=== PATIENT | female | born 1975 | race Caucasian/White ===

== ENCOUNTER 2016-07-05 17:44 | Emergency (ER) | payer BC ==
[~2016-07-05] VITALS: Ht 172.7 cm; Wt 67.6 kg
[~2016-07-05 17:44] MED LIST: DULO60CA6 PO; GABA600T2 PO; GBPN100C PO; HYDR-1231 PO; HYDR-3456 PO; METH-53 PO; METH4TAB PO; NAPR-243 PO; NAPR-689 PO; NORT50CA PO; PRD20T PO; TIZA4TAB3 PO; TRAM50TA2 PO
--- OUTSIDE RECORDS SUMMARY | 2016-07-05 17:53 | XMS REPORT | Continuity of Care Document ---
Author Author [facility] Organization [facility] Address Unknown Phone Unavailable Allergies Active Description Code Type Severity Reaction Onset Reported/Identified Relationship to Patient Clinical Status Yes meperidine [id number] Drug Allergy Mild HIVES 09/06/2013 Yes phenobarbital [id number] Drug Allergy Unknown N/A 09/06/2013 Medications Problems Date Dx Coded Attending Type Code Diagnosis Diagnosed By 09/06/2013 JARRETT SINGLETON, SHYAM Mchugh Ot 724.2 LUMBAGO 04/02/2014 PEREZ HERRON APRN Ot 724.2 LUMBAGO 02/16/2015 BRAIN SINGLETON, AIDE Rea Ot 724.2 LUMBAGO 03/29/2015 TERRI SEALS MD Ot Z01.818 03/31/2015 TERRI SEALS MD Ot G89.4 CHRONIC PAIN SYNDROME 03/31/2015 TERRI SEALS MD Ot M96.1 POSTLAMINECTOMY SYNDROME, NOT ELSEWHERE 09/08/2015 TERRI SEALS MD Ot Z01.818 ENCOUNTER FOR OTHER PREPROCEDURAL EXAMIN 09/08/2015 TERRI SEALS MD Ot G89.4 CHRONIC PAIN SYNDROME 09/08/2015 TERRI SEALS MD Ot M53.3 SACROCOCCYGEAL DISORDERS, NOT ELSEWHERE 09/08/2015 TERRI SEALS MD Ot M96.1 POSTLAMINECTOMY SYNDROME, NOT ELSEWHERE 09/08/2015 TERRI SEALS MD Ot Z79.899 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 Visit Date/Time Discharge Status Pt. Type Provider Facility Loc./Unit Complaint [id number] 09/08/2015 08:23:00 2015 09:00:00 DIS Outpatient TERRI SEALS MD [facility] CARD [id number] 03/31/2015 06:13:00 2014 10:21:00 DIS Outpatient TERRI SEALS MD [facility] [id number] 03/28/2015 12:00:00 2014 23:59:59 CLS Outpatient ARNEL SINGLETON, TERRI Morales [facility] PREOP [id number] 02/16/2015 08:25:00 2014 10:25:00 DIS Emergency BRAIN SINGLETON, AIDE Rea [facility] ER [id number] 04/02/2014 16:19:00 2013 16:59:00 DIS Emergency PEREZ HERRON APRN [facility] ER [id number] 09/06/2013 18:42:00 2013 19:54:00 DIS Emergency JARRETT SINGLETON, SHYAM Mchugh [facility] ER [id number] 12/08/2012 11:29:00 2012 23:59:59 CLS Outpatient [id number] 07/05/2016 17:45:00 ACT Emergency AIDE DE LA PAZ MD [facility] ER R AND L LEG PAIN/L HEEL NUMBNESS
[2016-07-05] MEDS ORDERED: OXYC-202 PO (18:32)
[2016-07-05] MEDS ORDERED: PRD20T PO (19:10)
[2016-07-05] MEDS ORDERED: OXYC-197 PO (19:10)
--- NOTE | 2016-07-05 19:10 | ED Back Pain ---
General Chief Complaint: General Problems/Pain Stated Complaint: R AND L LEG PAIN/L HEEL NUMBNESS Nursing Triage Note: Ambulatory to ED 8 with reports of bilateral leg pain s/p lumbar fusion on 06/20/16. Patient reports over the past four days, pain has increased and she is running out of her pain medication. Patient has no acute signs of distress, no facial grimacing, or decreased ROM, and rates pain "40/10." Nursing Sepsis Screen: No Definite Risk Source of Information: Patient Exam Limitations: No Limitations History of Present Illness Time Seen by Provider: 19:06 Initial Comments Into towards roommate with reports of bilateral leg pain as well as left heel numbness. She had lumbar fusion done in [place] on 06/20/16. She states over the past 4 days she's had increasing pain. No loss of bowel or bladder control. Denies any injury fevers or chills. Location: Lumbar Spine Timing/Duration: 3-4 Days Severity: Severe Pain/Injury Location: Back Associated Symptoms: lower back pain Allergies and Home Medications Allergies Coded Allergies: meperidine (Unverified Allergy, Mild, HIVES, 09/06/13) phenobarbital (Unverified Allergy, Unknown, 09/06/13) Home Medications Gabapentin 600 Mg Tablet 600 MG PO TID (Reported) Oxycodone HCl/Acetaminophen 1 Each Tablet 1 EACH PO Q6H (Reported) Tizanidine HCl 4 Mg Tablet 4 MG PO TID PRN PRN MUSCLE SPASMS (Reported) Tramadol HCl 50 Mg Tablet 50 MG PO Q6H PRN PRN PAIN (Reported) Constitutional: see HPI EENTM: see HPI Respiratory: no symptoms reported Cardiovascular: no symptoms reported Genitourinary: no symptoms reported Musculoskeletal: see HPI back pain Skin: no symptoms reported Psychiatric/Neurological: No Symptoms Reported Past Fvhsghr-Pbjgwl-Ncdogn Hx Patient Social History Alcohol Use: Denies Use Recreational Drug Use: No Smoking Status: Current Someday Smoker Type Used: Cigarettes Recent Foreign Travel: No Contact w/Someone Who Travel: No Recent Infectious Disease Expo: No Recent Hopitalizations: No Immunizations Up To Date Tetanus Booster (TDap): Less than 5yrs PED Vaccines UTD: Yes Date of Influenza Vaccine: Feb 23, 2015 Seasonal Allergies Seasonal Allergies: No Surgeries HX Surgeries: Yes (BACK SURG, KNEE SURG) Surgeries: Tubal Ligation Respiratory Hx Respiratory Disorders: No Cardiovascular Hx Cardiac Disorders: No Neurological Hx Neurological Disorders: No Reproductive System Hx 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 Genitourinary Hx Genitourinary Disorders: No Gastrointestinal Hx Gastrointestinal Disorders: No Musculoskeletal Hx Musculoskeletal Disorders: Yes Musculoskeletal Disorders: Chronic Back Pain Endocrine Hx Endocrine Disorders: No HEENT HX ENT Disorders: No Cancer Hx Cancer: No Psychosocial Hx Psychiatric Problems: No Integumentary HX Skin/Integumentary Disorder: No Blood Transfusions Hx Blood Disorders: No Physical Exam Vital Signs Vital Sign - Last 12Hours 07/05/16 18:26 Temp 98.2 Pulse 95 Resp 16 B/P 124/73 Pulse Ox 97 O2 Delivery Room Air Capillary Refill : Less Than 3 Seconds General Appearance: No Apparent Distress WD/WN HEENT: PERRL/EOMI TMs Normal Neck: Full Range of Motion Normal Inspection Respiratory: No Accessory Muscle Use No Respiratory Distress Gastrointestinal: Non Tender Soft Back: Normal Inspection Other (anterior approach for her surgery) Extremity: Normal Capillary Refill Normal Inspection Other (bilateral lower cavities are pink warm and dry with +2 posterior tibial pulses) Neurologic/Psychiatric: Alert Oriented x3 No Motor/Sensory Deficits Skin: Warm/Dry Progress/Results/Core Measures Results/Orders Vital Signs/I&O Vital Sign - Last 12Hours 07/05/16 18:26 Temp 98.2 Pulse 95 Resp 16 B/P 124/73 Pulse Ox 97 O2 Delivery Room Air Blood Pressure Mean: 90 Departure Impression Impression: Primary Impression: Lumbar radiculopathy Disposition: 01 HOME, SELF-CARE Condition: Stable Departure-Patient Inst. Decision time for Depature: 19:08 Referrals: NO,LOCAL PHYSICIAN (PCP/Family) Primary Care Physician Patient Instructions: Low Back Pain (DC) Add. Discharge Instructions: 1. Follow-up with your surgeon next week 2. Return to ER for any concerns 3. Pain medication as directed 4. All discharge instructions reviewed with patient and/or family. Voiced understanding. Scripts Prednisone 20 Mg Tab20 Mg PO BID #10 TAB Prov:PEREZ HERRON APRN 07/05/16 Oxycodone HCl/Acetaminophen (Percocet 5-325 mg Tablet)1 Each Tablet1 Each PO Q6H PRN PAIN #10 TAB Do not fill unless prednisone is also filled Prov:PEREZ HERRON APRN 07/05/16 PEREZ HERRON APRN Jul 05, 2016 19:10
[2016-07-05] MEDS ORDERED: KETOROLAC 60 MG/2 ML VIAL IM ONE (19:15)
[2016-07-05] MEDS ORDERED: morphine INJ 10 MG/ML 1ML (SYR OR VIAL) IM ONE (19:15)
[2016-07-05 20:06] VITALS: BP 126/70
== END 2016-07-05 20:06 | disposition home or self-care (01) ==
LOC: EDUNIT# 17:44 → ER 17:45
DX: M54.16 Radiculopathy, lumbar region (principal); F17.210 Nicotine dependence, cigarettes, uncomplicated; Z98.1 Arthrodesis status
CPT/HCPCS: 96372; 99281

== ENCOUNTER 2019-01-28 18:32 | Emergency (ER) | payer OTHER, BC ==
[~2019-01-28] VITALS: Ht 172.7 cm; Wt 65.8 kg
[~2019-01-28 18:32] MED LIST changes: -GABA600T2 PO; +GBPN600T PO; +OXYC1TAB12 PO; +OXYC1TAB87 PO; -TIZA4TAB3 PO; +TIZA4TAB4 PO
[2019-01-28] MEDS ORDERED: PROP20TA5 (18:44)
[2019-01-28] MEDS ORDERED: PRD20T PO (18:54)
--- NOTE | 2019-01-28 18:54 | ED Fall/Injury ---
General Chief Complaint: Trauma-Non Activation Stated Complaint: FALL/L LEG PAIN Nursing Triage Note: FELL DOWN APPX 10 STAIRS FRIDAY. TODAY SHE IS HAVING LOW BACK AND LEFT LEG PAIN. Source: patient Exam Limitations: no limitations History of Present Illness Date Seen by Provider: Jan 28, 2019 Time Seen by Provider: 18:51 Initial Comments To ER with reports of falling down onto her bottom and then sliding down 10 stairs on Friday. She is having low back pain and left leg pain. She has a history of chronic back pain with an operation and spinal stimulator. She is also on Soma. She denies any loss of sensation of genitals or loss of control of bowel or bladder, no fevers, Occurred: just prior to arrival Severity: moderate Injuries/Pain Location: back Loss of Consciousness: no loss of consciousness Allergies and Home Medications Allergies Coded Allergies: meperidine (Unverified Allergy, Mild, HIVES, 09/06/13) Home Medications Hydrocodone/Acetaminophen 1 Each Tablet, 1 TAB PO Q6H PRN for PAIN-SEVERE Prescribed by: PEREZ HERRON on 01/28/19 193 Prednisone 20 Mg Tab, 40 MG PO DAILY Prescribed by: PEREZ HERRON on 01/28/19 1854 Patient Home Medication List Home Medication List Reviewed: Yes Review of Systems Review of Systems Constitutional: see HPI Eyes: No Symptoms Reported Ears, Nose, Mouth, Throat: no symptoms reported Respiratory: no symptoms reported Cardiovascular: no symptoms reported Genitourinary: no symptoms reported Musculoskeletal: see HPI, back pain Skin: no symptoms reported Psychiatric/Neurological: No Symptoms Reported Past Jdbwrmu-Orzzmw-Bqtrpt Hx Patient Social History Alcohol Use: Occasionally Uses Recreational Drug Use: No Smoking Status: Current Everyday Smoker Type Used: Cigarettes Recent Foreign Travel: No Contact w/Someone Who Travel: No Recent Infectious Disease Expo: No Recent Hopitalizations: No Immunizations Up To Date Tetanus Booster (TDap): Less than 5yrs PED Vaccines UTD: Yes Date of Influenza Vaccine: Feb 23, 2015 Seasonal Allergies Seasonal Allergies: No Past Medical History Surgeries: Yes (BACK SURG, KNEE SURG) Tubal Ligation Respiratory: No Cardiac: No Neurological: No : No 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 0.0oz. 65.004103ts; 22.7 BMI Method:Stated General Appearance: WD/WN, no apparent distress HEENT: PERRL/EOMI, normal ENT inspection Respiratory: no respiratory distress, no accessory muscle use Gastrointestinal: normal bowel sounds, non tender Neurologic/Psychiatric: alert, normal mood/affect, oriented x 3, other (healed incision to the lumbar spine. The generator box to a spinal stimulator is seen beneath the skin of the right flank.) Skin: normal color, warm/dry Chante Coma Score Best Eye Response: (4) Open Spontaneously Best Verbal Response: (5) Oriented Best Motor Response: (6) Obeys Commands [place] Total: 15 Progress/Results/Core Measures Results/Orders My Orders Orders - PEREZ HERRON APRN Lumbar Spine - 2-3 Views (01/28/19 18:50) Rx-Hydrocodone/Apap 5-325 Mg (Rx-Vicodin (01/28/19 19:45) Ketorolac Injection (Toradol Injection) (01/28/19 19:45) Vital Signs/I&O 01/28/19 18:38 Temp 97.3 Pulse 60 Resp 16 B/P (MAP) 128/78 (95) Pulse Ox 98 O2 Delivery Room Air Blood Pressure Mean: 95 Departure Communication (Admissions) 1939-discussed the hardware fracture and the compression fracture of L1 with the patient. She is aware of both of these. She follows with the [facility]. Impression Primary Impression: Lumbar radiculopathy Additional Impression: Compression fracture Disposition: 01 HOME, SELF-CARE Condition: Stable Departure-Patient Inst. Decision time for Depature: 18:53 Referrals: NO,LOCAL PHYSICIAN (PCP/Family) Primary Care Physician Patient Instructions: NO INSTRUCTIONS GIVEN, Vertebral Compression Fracture Add. Discharge Instructions: 1. Steroids as directed 2. Return to ER for any concerns 3. Follow-up with your doctor later THIS WEEK for recheck--CALL first thing in the morning for an appointment. All discharge instructions reviewed with marisol ent and/or family. Voiced understanding. Scripts Hydrocodone/Acetaminophen (Dudley 5-325 Tablet) 1 Each Tablet 1 TAB PO Q6H PRN for PAIN-SEVERE MDD 10 TABS for 7 Days, #10 TAB Prov: PEREZ HERRON APRN 01/28/19 Prednisone (Prednisone) 20 Mg Tab 40 MG PO DAILY, #6 TAB 0 Refills Prov: PEREZ HERRON APRN 01/28/19 Work/School Note: Work Release Form Date Seen in the Emergency Department: Jan 28, 2019 Return to Work: Jan 30, 2019 PEREZ HERRON APRN Jan 28, 2019 18:54
--- NOTE | 2019-01-28 19:17 | Diagnostic Imaging Report ---
EXAM: LUMBAR SPINE - 2-3 VIEWS. INDICATION: Fall. Left leg pain. History of lumbar spine fusion. COMPARISON: None. FINDINGS: There are five lumbar-type vertebral bodies. Superior endplate compression fracture of L1 results in approximately 20% height loss. Vertebral body heights are otherwise preserved. Anterior interbody fusion at L5-S1. There is a discontinuity of an inferior metallic component of this interbody device. Mild lower lumbar facet arthropathy at L4-S1. Partially visualized thoracic spinal cord stimulator. IMPRESSION: 1. Age-indeterminate superior endplate compression fracture of L1 results in approximately 20% height loss and may be acute. This could be further investigated with MRI. 2. Anterior interbody fusion device at L5-S1. An inferior metallic component of this device is discontinuous consistent with a component fracture. Dictated by: Dictated on workstation # [id number]
[2019-01-28] MEDS ORDERED: HYDR-4226 PO (19:35)
[2019-01-28] MEDS ORDERED: RX-HYDROCODONE/APAP 5/325 MG #4 TAB PK PO PRN (19:45)
[2019-01-28] MEDS ORDERED: KETOROLAC 30 MG/ML VIAL IVP ONE (19:45)
[2019-01-28 19:47] VITALS: BP 128/78
== END 2019-01-28 19:50 | disposition home or self-care (01) ==
LOC: EDUNIT# 18:32 → ER 18:33
DX: S32.010A Wedge compression fracture of first lumbar vertebra, initial encounter for closed fracture (principal); M54.16 Radiculopathy, lumbar region; F17.210 Nicotine dependence, cigarettes, uncomplicated; R40.2142 Coma scale, eyes open, spontaneous, at arrival to emergency department; R40.2252 Coma scale, best verbal response, oriented, at arrival to emergency department; R40.2362 Coma scale, best motor response, obeys commands, at arrival to emergency department; Z98.51 Tubal ligation status; Z88.5 Allergy status to narcotic agent; W10.9XXA Fall (on) (from) unspecified stairs and steps, initial encounter
CPT/HCPCS: 72100; 96374